=== PATIENT | female | born 1990 | race Caucasian/White ===

== ENCOUNTER 2021-09-24 00:34 | Outpatient (CLI) | payer MEDICAID, SELFPAY ==
--- NOTE | 2021-09-24 | DI.US_ITS ---
Exam(s) US OB 2-3 TRIMESTER EXAM: US OB 2-3 TRIMESTER CLINICAL HISTORY: CARE 2ND TRIMESTER, SURVEY,Z34.82 . TECHNIQUE: Transabdominal obstetrical ultrasound performed. COMPARISON: No exams were available for comparison FINDINGS: Transabdominal obstetrical ultrasound performed. FINDINGS: Number of fetuses: One. position: Vertex. Placental grade: 1 Placental location: Anterior. No evidence of previa. BIOMETRIC DATA: BPD: 52 millimeters, 21+5 weeks HC: 190 millimeters, 21+2 weeks AC: 165 millimeters, 21+4 weeks FL: 37 millimeters, 21+5 weeks Cisterna Magna: 3.4 millimeters Cerebellum: 2.2 cm EFW: 433 grms 98 % Composite Age: 21+4 weeks EDC by US: 31 Jan 2022 Heart Rate: 147BPM Amniotic fluid: Amount of fluid is visually within normal limits. ANATOMICAL SURVEY: Four-chambered heart: Unremarkable. LVOT: Unremarkable. RVOT: Unremarkable. Left-sided stomach: Unremarkable. urinary bladder: Unremarkable. Bilateral kidneys: Unremarkable. Three-vessel cord: Unremarkable. Cord insertion: Unremarkable. Umbilical artery velocity: Unremarkable. Posterior fossa:Unremarkable. ventricles: Unremarkable. nose: Unremarkable. lips: Unremarkable. palate: Unremarkable. spine: Unremarkable. Two arms and two legs: Unremarkable. IMPRESSION: 1. Single live intrauterine gestation as above. 2. Normal anatomic survey. DATA REPOSITORY:
== END 2021-09-24 00:54 ==
PROVIDERS: PCP Family Medicine; Visit Provider Family Medicine
DX: Z34.92 Encounter for supervision of normal pregnancy, unspecified, second trimester (principal); Z3A.21 21 weeks gestation of pregnancy
CPT/HCPCS: 76805

== ENCOUNTER 2022-02-06 03:18 | Inpatient (IN) | payer MEDICAID, SELFPAY ==
[2022-02-06] VITALS (88 sets, daily range): BP systolic 91–135; BP diastolic 55–80; PULSE 66–112; RESP 16–18; TEMP 36.6–36.8; O2SAT 94–100; BMI 23.0
--- NOTE | 2022-02-06 03:42 | W.PM.OBHPL1 ---
Date of service: 02/06/22 Time of Service: 02:42 Assessment and Plan Assessment and plan (1) : Status: Acute Assessment and plan: Jazmín is a 31yo at 39.3 weeks with Rh- GBS- presenting in active labor. SVE 7/80/-2/soft/anterior. Anticipate . She does desire epidural which we will try to get in. Otherwise, routine labor care. Qualifiers: Weeks of gestation: 39 weeks Qualified Code(s): Z3A.39 - 39 weeks gestation of OB-HPI Labor/Delivery History of Present Illness Reason for Visit: Rule out labor Chief Complaint: Uterine Contractions. OZ Calculator Estimated Delivery Date Method Current WG Current Estimate 02/10/22 LMP (Certain) 39w 3d History of Present Expected Delivery Route/Plan 31yo at 39.3w by LMP with Rh- RI HepB- GBS- who presented in active labor. Her has been uncomplicated. She has been mary ellen since 1230am, every 2-3 minutes, becoming more intense. Assessment: History Reviewed & Current Review of Systems All systems reviewed & are unremarkable except as noted in HPI and below PFSH All Active Problems (Updated 02/06/22 @ 03:54 by Milo Martinez) (Acute) Social History Smoking risk assessment performed?: No Exam Physical Exam Vital signs: Temp Pulse Resp BP 36.6 C 84 18 126/74 02/06/22 03:24 02/06/22 03:24 02/06/22 03:24 02/06/22 03:24 Vital Signs Reviewed: Yes Constitutional Constitutional: no acute distress Detailed Labor and Delivery Exam Dilation: 7 Effacement (%): 80 station: -2 Cervix position: anterior Consistency: soft Bower Score: Cervical Points Exam 0 1 2 3 Dilation Closed 1-2cm 3-4 cm 5-6cm Effacement 0-30% 40-50% 60-70% 80% Consistency Firm Medium Soft Station -3 -2 -1,0 +1,+2 Position Posterior Mid Anterior BOWER Score(Cervical Ripeness Score): 11 Amniotic Membrane Status: Intact Monitor Mode: External Contraction Frequency(min): 2-3 Contraction Duration(sec): 60 Contraction Intensity: Moderate Fetus A Heart Rate Baseline: 130 Monitor Accelerations: Present Monitor Decelerations: None Variability: Moderate (6-25 BPM) Presentation: Cephalic Categories: Category I HEENT Exam HEENT Exam: Normal Respiratory Exam Respiratory Exam: Normal Cardiovascular Exam Cardiovascular Exam: Normal Abdominal Exam Abdominal Exam: Normal Rectal Exam Rectal Exam: Normal Exam Exam: Normal Extremities Exam Extremities Exam: Normal Neurological Exam Neurological Exam: Normal Psychiatric Exam Psychiatric Exam: Normal Results Results Group Beta Strep: Negative Blood Type: B- Rubella Status: Immune Varicella Immunity: Not Tested Risk Assessment Risk for Pre-Eclampsia Daily Dose ASA Indicated: No Risk for Post- Hemorrhage At Risk?: No Risks Reviewed Risks Reviewed Upon Admission: Yes
[2022-02-06 04:11] LABS: HCT 34.7 % (36.0-46.0); HGB 12.2 g/dL (11.2-15.7); MCH 31.7 pg (27.0-33.0); MCHC 35.2 % (32.0-36.0); MCV 90 fL (80-95); MPV 9.9 fL (8.0-11.0); Platelet Count 148 10^3/uL (130-400); RBC 3.85 10^6/uL (3.93-5.22); RDW 13.4 % (11.7-14.6); RDW-SD 43.9 fL; WBC 10.29 10^3/uL (4.4-10.8)
[2022-02-06] MEDS: Lactated Ringers 500 ML IV (04:15)
--- NOTE | 2022-02-06 04:39 | ANES.PREOP_ITS ---
General Info Date of Service Date Performed: 02/06/22 Height: 6 ft Weight: 77.111 kg Body Mass Index (BMI): 23.0 Meds Allergies and Home Medications Current Visit Medications: Current Medications Generic Name Dose Route Start Last Admin Trade Name Freq PRN Reason Stop Dose Admin Fentanyl/Ropivacaine 100 ml 02/06/22 03:45 Fentanyl/Ropivacaine 2 Mcg/Ml And 0.125% 100 Ml Bag EP DIRECTED STEVEN Sodium Chloride 500 mls @ 0 mls/hr 02/06/22 03:39 Saline 500ml Bag IV PRN PRN As Directed Ringer's Solution 500 mls @ 500 mls/hr 02/06/22 03:42 IV 02/06/22 04:41 BOLUS ONE IV Miscellaneous Supplies 1 each 02/06/22 03:45 Iv Access IV DIRECTED STEVEN Sodium Chloride 0 ml 02/06/22 03:39 Normal Saline Flush 10 Ml Syr IVP PRN PRN PFSH Active Problems Active Problems: Problem Status Onset Code Z34.90 Tobacco Smoking/Tobacco Use Status: Never Alcohol Alcohol Intake: never Substance Use Substance use: Never Substance use type: does not use Vital Signs and Lab Results Vital Signs Most Recent Vital Signs in EMR: Most Recent Vital Signs Temp Pulse Resp BP 36.6 C 84 18 126/74 02/06/22 03:57 02/06/22 03:57 02/06/22 03:57 02/06/22 03:57 Lab Results Result Diagrams: 02/06/22 04:03 Blood Type / Crossmatch: Patient ABO/Rh Pending 02/06/22 Complete Blood Count: White Blood Count 10.29 10^3/uL (4.4-10.8) 02/06/22 04:03 Red Blood Count 3.85 10^6/uL (3.93-5.22) L 02/06/22 04:03 Hemoglobin 12.2 g/dL (11.2-15.7) 02/06/22 04:03 Hematocrit 34.7 % (36.0-46.0) L 02/06/22 04:03 Platelet Count 148 10^3/uL (130-400) 02/06/22 04:03 Complete Metabolic Panel: No Data to Display Liver Function Panel: No Data to Display Coagulation Panel: No Data to Display Cardiac Panel: No Data to Display Arterial Blood Gas: No Data to Display Venous Blood Gas: No Data to Display Pancreas Panel: No Data to Display Thyroid Panel: No Data to Display Infectious Disease: No Data to Display Blood Cultures: 2 No Data to Display Toxicology Panel: No Data to Display Panel: No Data to Display Anesthesia Assessment and Plan Anesthesia History Personal History: No History of Anesthesia Complications Family History: No Family History of Anesthesia Complications Exercise Tolerance Exercise Tolerance: Metabolic Equivalents>4 Cardiac & Pulmonary Exam Cardiac Exam: Normal S1/S2 Heart Sounds Pulmonary Exam: Clear Bilateral Breath Sounds Implantable Cardiac Device Does patient have a Pacemaker or an ICD?: No Airway Exam Known Difficult Airway: No Mallampati Class: 1 Mouth Opening: Normal (> 3cm) Thyromental Distance: Greater than 3 cm Neck Range of Motion: Full ROM Neck Circumference: Normal Teeth Condition: Normal Dentition ASA Classification ASA Score: ASA 2 Emergency Case?: No NPO Status NPO Status: NPO Clears >2 hours, Solids >8 hours Status Status: Confirmed Anesthesia Plan Resuscitation Status: Full Code Anesthesia Technique: Epidural Anesthesia Airway Planned: Natural Airway Monitors Used: Standard Monitors
[2022-02-06 04:47] LABS: Source Nasal/Nares
[2022-02-06] MEDS: fentaNYL 100 MCG/2 ML VIAL EP (05:08)
[2022-02-06] MEDS: ePHEDrine 50 MG/ML VIAL IVP (05:25)
--- NOTE | 2022-02-06 05:34 | ANES.NERVE_ITS ---
Epidural/Spinal Catheter Date Performed: 02/06/22 Procedure Start: 04:33 Procedure Stop: 05:01 Requesting Provider: Milo Martinez Procedure Location: Obstetrics Reason Performed: Labor Epidural Standard Monitors Applied: Blood Pressure and SpO2 Patient Position: Sitting Sedation Given (Indicate Dose Given): No Sedation given Patient Mental Status: Awake Sterility: Hand Hygiene, Surgical Cap, Sterile Gloves, Eye Protection and Chlorhexidine Procedure Location: L3-L4 Interspace Epidural Needle: Tuohy 17 Guage Needle Length: 3.5 Inch Needle Approach: Midline Epidural Procedure: Skin Prepped, Sterile Drape Placed, 1% Lidocaine to skin and subcutaneous tissue with 25G needle, Tuohy Needle placed, FERNANDO to Saline Used, Epidural Catheter Placed, Negative Heme, Negative CSF Flow and Tuohy Needle Removed Catheter Placed?: Catheter Placed Test Dose (Indicate Dose Given): 3ml 1.5% Lidocaine with 1:200K Epinephrine Given (2 cc) and Negative Test Dose Loss of R esistance Depth (cm): 6 Catheter depth at skin (cm): 12 Dressing: Sorbaview Dressing Placed Epidural Provider Bolus (Indicate Dose Given): Total bolus dose given in 3-5 ml divided doses and Total Ropivacaine 0.125% with Fentanyl 2mcg/ml Given from pump. (ml) Dose:: 2 cc Additives (Indicate Dose Given ): Fentanyl PF Dose:: 100 mcg Infusion Medication: Medication Infusion Began Medication Infusion: Ropivacaine 0.125% with Fentanyl 2mcg/ml Maintenance Infusion Rate (ml/hour): 10 PCEA Bolus Dose (ml): 3 Block Level: T10 Paresthesia: None Ultrasound: Not Used Number of Attempts (See previous attempts in note section): 1 Procedure Tolerated: No Complications and Patient tolerated well Procedure Outcome: Successful Performed By: Ki Santacruz
[2022-02-06 05:42] LABS: COVID-19 PCR Negative (Negative)
--- NOTE | 2022-02-06 07:57 | W.PM.OBNL1 ---
Date of service: 02/06/22 Time of Service: 06:57 Pelvic Exam Dilation: 9 Effacement (%): 90 station: -1 Cervix Position: anterior Consistency: soft Vaginal Exam Presentation: Cephalic Contractions Monitor Mode: External Contraction Frequency(min): 4-5 Contraction Duration(sec): 60 Intensity: Moderate Fetus A Monitor: External (US) Heart Rate Baseline: 135 Presentation: Cephalic Variability: Moderate (6-25 BPM) Categories: Category I FHR Rhythm: Regular Characteristics: Normal Accelerations: Present Decelerations: Early Recurrence: Intermittent Amniotic Membrane Status: Ruptured Assessment Note: AOM performed with scant clear fluid Assessment and Plan Assessment and plan (1) : Status: Acute Assessment and plan: Doing well, progressing. AROM performed after discussion with pt, scan clear fluid. Category 1 strip with early decels. Continue present management. Epidural in place and effective. Qualifiers: Weeks of gestation: 39 weeks Qualified Code(s): Z3A.39 - 39 weeks gestation of Objective Abnormal lab results 02/06/22 Range/Units 04:03 RBC 3.85 L (3.93-5.22) 10^6/uL Hct 34.7 L (36.0-46.0) % Temp Pulse Resp BP Pulse Ox 36.7 C 77 16 110/64 98 02/06/22 07:09 02/06/22 07:33 02/06/22 07:09 02/06/22 07:09 02/06/22 07:33 Laboratory Results WBC 10.29 10^3/uL (4.4-10.8) 02/06/22 04:03 RBC 3.85 10^6/uL (3.93-5.22) L 02/06/22 04:03 Hgb 12.2 g/dL (11.2-15.7) 02/06/22 04:03 Hct 34.7 % (36.0-46.0) L 02/06/22 04:03 MCV 90 fL (80-95) 02/06/22 04:03 MCH 31.7 pg (27.0-33.0) 02/06/22 04:03 MCHC 35.2 % (32.0-36.0) 02/06/22 04:03 RDW 13.4 % (11.7-14.6) 02/06/22 04:03 Plt Count 148 10^3/uL (130-400) 02/06/22 04:03 MPV 9.9 fL (8.0-11.0) 02/06/22 04:03 COVID-19 Source Nasal/Nares 02/06/22 04:05 SARS-CoV-2 (PCR) Negative (Negative) 02/06/22 04:05 Patient ABO/Rh B Negative 02/06/22 04:03 Antibody Screen NEGATIVE 02/06/22 04:03 Vital Signs Reviewed: Yes Objective Narrative Objective Narrative: Jazmín is doing well, tired, but epidural is effective. Feeling some rectal pressure. Subjective Patient Reports: No new Complaints Results Hemoglobin/Hematocrit: Hgb 12.2 g/dL (11.2-15.7) 02/06/22 04:03 Hct 34.7 % (36.0-46.0) L 02/06/22 04:03 Abnormal Lab Findings: Abnormal Labs 02/06/22 04:03 RBC 3.85 L Hct 34.7 L
--- NOTE | 2022-02-06 11:47 | OBVDS_ITS ---
Date of service: 02/06/22 Time of Service: 10:47 OB Labor/ Delivery Information Baby A Delivery Delivery Method: Spontaneaous Presentation: Cephalic Cephalic Position: Vertex Vertex Position: Left Occipital Anterior Breech Position: N/A Cord Description-Baby A: 3 Vessels Amniotic Fluid: Clear Delivery Outcome: Liveborn Infant Transferred: Remains with Mother Note: Lucy presented in labor at 7cm and progressed well, AROM performed with clear fluid after which she quickly reached complete and felt ready to push. She push for 15minutes and delivered a viable 4345g term infant in MARIA TERESA position with apgars of 9 and 9. Baby was immediately placed on moms abdomen. Cord was clamped and cut by dad after pulsation had stopped. Placenta was delivered spontaneously, 3 vessel cord, intact. Simple lac repair performed. She did well post , although fundus does not remain firm. It does firm up with massage. Bleeding remains minimal. Pictocin was administered after delivery of placenta. Will continue to monitor closely. Baby is LGA, so will monitor glucose. Routine post care. Anticipate DC home tomorrow. Providers Doctor: Milo Martinez Cash Room Clerk: Milo Martinez Nurse: Savanah Odell Nurse: Renee Carrillo Labor/Delivery Information Number of Babies in Womb: 1 Steroids Given: None Reason Steroids Not Administered: N/A Group Beta Strep: Negative Antibiotics Administered: No Rubella Status: Immune Blood Type: B- Varicella Immunity: Not Tested Maternal Complications: None Shoulder Dystocia: No Stages of Labor Onset of Labor Date: 02/06/22 Onset of Labor Time: 00:30 Complete Dilatation Date: 02/06/22 Complete Dilatation Time: 09:04 Labor - Stage 1 Duration: 0 minutes ROM Baby A: 02/06/22 ROM Baby A: 07:51 ROM Total Time- Baby A: [id number] Delivery Date-Baby A: 02/06/22 Delivery Time-Baby A: 09:17 Labor Stage 2 Duration: 13 minutes Placenta Delivery Date-Baby A: 02/06/22 Placenta Delivery Time-Baby A: 09:24 Labor-Stage 3 Duration: 7 minutes Total Length of Labor-Baby A: 8 hours and 47 minutes Placenta Cultured: No Placenta Status: Delivered Baby A Infant Gender: Male Gestational Status: Term (39-41.6 wks) Gestational Age in Weeks/Days: 39 Weeks and 3 Days weight: 4345 g Length-Baby A: 50.8 cm Head Circumference-Baby A: 35.56 cm Score-1 Minute Interval(Baby A) Heart Rate-1 minute: 100 BPM or Greater Respiratory Effort- 1 minute: Spontaneous/Strong Cry Muscle Tone-1 minute: Active Movement Reflex Response-1 minute: Prompt Response Color-1 minute: Bluish Hands or Feet Total Score-1 minute: 9 Score-5 Minute Interval(Baby A) Heart Rate- 5 minute: 100 BPM or Greater Respiratory Effort-5 minute: Spontaneous/Strong Cry Muscle Tone-5 minute: Active Movement Reflex Response-5 minute: Prompt Response Color-5 minute: Bluish Hands or Feet Interventions Repair of Laceration Type: Perineal, Laceration Extension: First Degree. Sponge Count Correct: Yes, Sharp Count Correct: Yes. Laceration Repair Note: first degree perineal laceration repaired using 3-0 vicryl with deep then superficial layer in the usual fashion. Hemostasis and good cosmetic outcome.
[2022-02-06] MEDS: Oxytocin/Normal Saline 30 UNIT/500 ML BAG 95 UNITS IV (12:15)
--- NOTE | 2022-02-06 14:53 | W.ANESPOSTOP ---
Postoperative Evaluation Date, Time and Location Date Performed: 02/06/22 Time Performed: 13:30 Patient Location: Obstetrics Vital Signs Most Recent Imported Vital Signs: Most Recent Vital Signs Temp Pulse Resp BP Pulse Ox 36.6 C 72 16 117/73 98 02/06/22 12:50 02/06/22 12:50 02/06/22 12:50 02/06/22 12:50 02/06/22 07:33 Assessment Mental Status: Awake (Alert & Oriented to Patient Baseline) Airway and Respiratory Function: Patent airway with normal (patient baseline) respiratory exam Cardiovascular Function: Hemodynamically Stable Hydration Status: Adequately Hydrated Nausea & Vomiting: No Nausea or Vomiting Pain: Pt. Denies Any Pain Peripheral Nerve Block: Patient did not receive a nerve block
[2022-02-07] MEDS: Ibuprofen 600 MG TAB PO (05:12)
[2022-02-07 08:15] VITALS: BP 109/63; PULSE 85; RESP 14; TEMP 36.6
--- NOTE | 2022-02-07 13:31 | W.PM.OBDISCH ---
Date of service: 02/07/22 Time of Service: 12:31 DS: Diagnosis Discharge Diagnosis (1) : Status: Acute Discharge Plan Disposition Patient Disposition: HOME Condition: Good Discharge Details Reason For Visit: Labor Admit Date/Time: 02/06/22 03:18 Admit Provider: Milo Martinez Attending Provider: Milo Martinez Primary Care Provider: Maribell Oliva Hospital Course Hospital Course: who presented in active labor at 39.3w by LMP with Rh- RI HepB- GBS-, delivered a healthy LGA baby boy over a first degree laceration. course uncomplicated. Pain minimal. Normal lochia. Mood good. Received rhogam (baby blood type A pos). well with minimal discomfort. Discharge Instructions Activity:: Activity as Tolerated Equipment/Supplies:: No Equipment Needed Diet:: As Tolerated Discharge Orders Discharge Orders: Discharge Order (Routine); Ordered 02/07/22 Ordered By: Rachel Diaz OB:DS Summary Summary Vaginal Delivery Method: Spontaneaous Episiotomy Description: None Laceration Description: Perineal Laceration Extension: First Degree Contraception Discussed Contraception Discussed: Yes Contraceptive Plan: IUD, Infant Gender-Baby A: Male weight: 4345 g Status at Discharge Functional status at discharge: independent ambulation Overall status at discharge: patient is progressing back to baseline Mental Status: mental status grossly normal Speech and Movement: speech and movement normal Mood: congruent mood Affect: normal affect Exam Physical Exam Vital signs: Temp Pulse Resp BP Pulse Ox 36.6 C 85 14 109/63 96 02/07/22 08:15 02/07/22 08:15 02/07/22 08:15 02/07/22 08:15 02/06/22 19:56 Constitutional Constitutional: no acute distress Respiratory Exam Respiratory Exam: Normal Fundal Exam Fundus: Below Umbilicus and Firm Extremities Exam Extremity Exam: Normal Neurological Exam Neurological Exam: Normal Psychiatric Exam Psychiatric Exam: Normal PFSH All Active Problems (Updated 02/06/22 @ 03:54 by Milo Martinez) (Acute) Social History Smoking/Tobacco Use Status: Never Smoking risk assessment performed?: Yes Alcohol Intake: never Drug use: Never Substance use type: does not use Do you feel safe at home: Yes Do you feel safe in your relationship?: Yes History History 9 Para 2 Hx # Term Pregnancies Multiple births Hx # Pregnancies Ectopic pregnancies AB induced Hx Number of Living Children AB spontaneous DS: Data Vitals/I&O Vitals and I&O: Vital Signs Temperature 36.6 C 02/07/22 08:15 Pulse 85 02/07/22 08:15 Pulse Rhythm Regular 02/07/22 08:15 Respiratory Rate 14 02/07/22 08:15 Blood Pressure 109/63 02/07/22 08:15 Blood Pressure Mean 78 02/07/22 08:15 Pulse Oximetry 96 02/06/22 19:56 Oxygen Delivery Method Room Air 02/06/22 03:57 Oxygen Flow Rate 0 02/06/22 03:57 Intake & Output 02/06/22 02/07/22 02/07/22 23:59 11:59 23:59 Output Total 2700 / 3450 Balance -2700 / -2940 Output: Urine 2700 / 3450 Data Completed and Pending Labs on day of discharge: Labs from last 24 hours 02/07/22 02/06/22 07:08 04:03 Patient ABO/Rh B Negative Antibody Screen NEGATIVE Screen Pending Unit Expiration Date 11/15/23 Product Lot # [id number]
== END 2022-02-07 15:00 | disposition home or self-care (01) | DRG 807 ==
PROVIDERS: Admitting Provider Family Medicine; PCP Family Medicine; Visit Provider Family Medicine
DX: O36.0930 Maternal care for other rhesus isoimmunization, third trimester, not applicable or unspecified (principal); Z37.0 Single live birth; O70.0 First degree perineal laceration during delivery; Z3A.39 39 weeks gestation of pregnancy
CPT/HCPCS: 36415; 85027; 85461; 86850; 86900; 86901; 87635; 90384; G0378; J2790; J3010